=== PATIENT | female | born 1945 | race Caucasian/White ===

== ENCOUNTER 2019-12-22 21:41 | Emergency (ER) | payer MEDICARE, OTHER ==
[~2019-12-22] VITALS: Ht 152.4 cm; Wt 90.3 kg
[2019-12-22 21:47] VITALS: BP 158/95
[2019-12-22] MEDS ORDERED: ONDANSETRON 4 MG TAB.RAPDIS ONE (21:50)
[2019-12-22] MEDS ORDERED: MORPHINE SULFATE INJ 4 MG/ML DISP.SYRIN ONE (21:50)
--- NOTE | 2019-12-22 21:56 | NUR ---
PT BIBF C/O L UPPER ARM PAIN 10/10 PS S/P GROUND LEVEL FALL. PT AAOX4, RESPIRATIONS EVEN AND UNLABORED ON RA W/ AND NOTED. SWELLING NOTED ON THE L SHOULDER. PT CONNECTED TO THE DIRECTOR OF OFFICIATING AND POX
[2019-12-22] MEDS ORDERED: MORPHINE SULFATE INJ 2 MG/ML DISP.SYRIN IM ONE (22:00)
[2019-12-22] MEDS ORDERED: ONDANSETRON 4 MG TAB.RAPDIS SL ONE (22:00)
--- NOTE | 2019-12-22 23:12 | NUR ---
Patient discharged to home in stable condition. Written and verbal after care instructions given. Patient verbalizes understanding of instruction. Pt assisted to car via wheelchair.
== END 2019-12-22 23:13 | disposition home or self-care (01) ==
LOC: ER 21:43
DX: S42.292A Other displaced fracture of upper end of left humerus, initial encounter for closed fracture (principal); F17.200 Nicotine dependence, unspecified, uncomplicated; I10 Essential (primary) hypertension; E11.9 Type 2 diabetes mellitus without complications; W01.0XXA Fall on same level from slipping, tripping and stumbling without subsequent striking against object, initial encounter; Y93.89 Activity, other specified; Y92.89 Other specified places as the place of occurrence of the external cause; Y99.8 Other external cause status
CPT/HCPCS: 29105; 73030; 73060; 82962; 96372; 99284; 99406; J2270; Q0162